=== PATIENT | female | born 1965 | race Caucasian/White ===

== ENCOUNTER 2023-07-02 08:10 | Observation (INO) ==
[~2023-07-02 08:10] MED LIST: Acetaminophen IV 1 GM/100ML 1,000 MG/100 ML BAG IV ONE; Buffered Lidocaine 1% SYRIN 1 ml INTRADERM ONE; Lactated Ringers 1000 ml BAG 1,000 ML IV SCH; NS 0.45% 1000 ml BAG 1,000 ML IV SCH; Naloxone 0.4 mg VIAL 0.4 mg/ml 1 ml VIAL IV PRN; Ondansetron 4 mg VIAL 2 MG/ML 2 ml VIAL IV PRN; fentaNYL 100 mcg/2 ml 50 MCG/ML VIAL IV PRN
[2023-07-02] MEDS ORDERED: Tranexamic Acid 1 GM/100ML BAG 2,000 MG/200 ML BAG IV ONE (08:34)
[2023-07-02] MEDS ORDERED: ceFAZolin 2 GM PREMIX 2 GM/50 ML BAG ONE (08:34)
[2023-07-02 08:55] LABS: Rapid COVID-19 Molecular Undetected (Undetected)
[2023-07-02] MEDS ORDERED: Midazolam 2 mg/2 ml VIAL 1 mg/ml 2 ml VIAL (2 mg) ONE ×2 (09:15→10:23)
[2023-07-02] MEDS ORDERED: fentaNYL 100 mcg/2 ml 50 MCG/ML VIAL ONE ×2 (09:15→10:23)
[2023-07-02] MEDS ORDERED: ROPIVACAINE 5 MG/ML 30 ML BTL (0.5%) ONE ×2 (10:23→11:50)
[2023-07-02] MEDS ORDERED: Lactulose 30 ml UDC PO PRN (13:59)
[2023-07-02] MEDS ORDERED: Ondansetron 4 mg VIAL 2 MG/ML 2 ml VIAL IV PRN (13:59)
[2023-07-02] MEDS ORDERED: Magnesium Hydroxide LIQ 30 ML UDC PO PRN (13:59)
[2023-07-02] MEDS ORDERED: Morphine 2 MG/ML SYRINGE IV PRN (13:59)
[2023-07-02] MEDS: Lactated Ringers 1000 ml BAG 1,000 ML IV SCH (16:42)
[2023-07-02] MEDS: ceFAZolin 1 GM ADVAN 1 GM in NS 0.9% 50 ML 50 ML IVPB SCH (19:54)
[2023-07-03] MEDS: Magnesium Hydroxide LIQ 30 ML UDC PO SCH (00:24)
[2023-07-03 05:41] LABS: Hematocrit 33.7 % (35-45); Hemoglobin 11.5 g/dL (11.5-14.3); Mean Platelet Volume 7.7 fL (7.5-11.2); Platelet Count 231 10^3/uL (150-450)
[2023-07-03 06:06] LABS: Calcium 8.6 mg/dL (8.6-10.3); Creatinine, Serum 0.61 mg/dL (0.51-0.95); Potassium 3.8 mmol/L (3.5-5.0); eGFR CKD-EPI 105.5 (>60)
[2023-07-03] MEDS: Vitamin THERAPEUTIC TAB PO SCH (09:03)
[2023-07-03] MEDS: Ondansetron ODT 4 mg TAB 4 MG TAB PO PRN (11:02)
== END 2023-07-03 14:55 | disposition home or self-care (01) ==
LOC: OR 08:10 → SSU 08:10
PROVIDERS: ADMIT Orthopaedic Surgery Adult Reconstructive Orthopaedic Surgery; ATTEND Orthopaedic Surgery Adult Reconstructive Orthopaedic Surgery